=== PATIENT | male | born 1950 | race Caucasian/White ===

== ENCOUNTER → 2020-05-11 | Outpatient (CLI) | payer MEDICARE, OTHER | END | disposition home or self-care (01) | LOC: CPPFTMAIN 08:44 | PROVIDERS: ATTEND Internal Medicine Critical Care Medicine | DX: J44.9 Chronic obstructive pulmonary disease, unspecified (principal) | CPT/HCPCS: 94060; 94726; 94729 ==

== ENCOUNTER → 2020-07-09 | Outpatient (CLI) | payer MEDICARE, OTHER ==
--- NOTE | 2020-07-09 18:04 | PE ---
EXAMINATION TYPE: PET CT fusion skull to thigh DATE OF EXAM: 07/09/2020 COMPARISON: None Prior PET/CT: None HISTORY: Lung nodule. History of liver cancer status post liver transplant. TECHNIQUE: Following the intravenous administration of 11.13 mCi of F-18 FDG, whole body images are performed from the skull base to the midthigh. Images are reviewed on the computer in the coronal, a xial, and sagittal planes. Reconstructed rotating images are created on independent workstation and reviewed on the computer. A localization and attenuation correction CT is performed in conjunction with the PET scan. SCAN: Initial Scan Blood glucose: 160 mg/dL Average Mediastinum SUV: 1.18 Average Liver SUV: 2.08 FINDINGS: NECK: No hypermetabolic activity. THORAX: Left lower lobe pulmonary nodule measures 1.0 cm (3:118) with no metabolic activity. ABDOMEN/PELVIS: No abnormal hypermetabolic activity. OSSEOUS STRUCTURES: No hypermetabolic activity. LOCALIZATION CT: No cervical, thoracic, or abdominopelvic lymphadenopathy. Calcified coronary artery disease. There is diffuse circumferential thickening of the mid and distal esophagus. Status post cho lecystectomy. Nonobstructing left renal 6 mm calculus. Splenomegaly measures up to 18.8 cm. Colonic d iverticulosis, with no acute diverticulitis. Degenerative changes of the spine. COMPARISON: None available IMPRESSION: 1. Left lower lobe 1.0 cm pulmonary nodule demonstrates no metabolic activity. Recommend CT chest. Si x-month follow-up for stability. 2. Circumferential thickening of the mid to distal esophagus. Findings may represent esophagitis vers us neoplasm. Recommend direct visualization. 3. Splenomegaly. 4. Nonobstructing left renal calculus.
== END | disposition home or self-care (01) ==
LOC: RADPETMAIN 10:19
PROVIDERS: ATTEND Internal Medicine Critical Care Medicine
DX: R91.1 Solitary pulmonary nodule (principal); K22.8 Other specified diseases of esophagus; R16.1 Splenomegaly, not elsewhere classified; N20.0 Calculus of kidney; E11.9 Type 2 diabetes mellitus without complications
CPT/HCPCS: 78815; A9552

== ENCOUNTER → 2021-11-22 | Outpatient (CLI) | payer MEDICARE, OTHER ==
[2021-11-22 18:52] LABS: African American GFR (CKD) >90 (>60 ml/min/1.73 sqM); Blood Urea Nitrogen 28 mg/dL (9-20); Non-African American GFR(CKD) >90 (>60 ml/min/1.73 sqM)
--- NOTE | 2021-11-23 08:00 | CT ---
EXAMINATION TYPE: CT chest w con DATE OF EXAM: 11/22/2021 COMPARISON: PET scan dated 07/09/2020 HISTORY: h/o lung nodule CT DLP: 518.2 mGycm Automated exposure control for dose reduction was used. TECHNIQUE: CT scan of the chest is performed with IV Contrast, patient injected with 72 mL of Isovue 300. FINDINGS: LUNGS: Left lower lobe nodule measuring 11 mm compared to 10 mm previously (July 2020 CT scan). T he surrounding micronodularity measuring up to 4 mm is stable. Newly seen minimal groundglass opaciti es and subtle areas of infiltration at the posterolateral aspect of the right lower lobe. Scattered l inear basal pulmonary atelectasis. Mild COPD changes. Patent trachea and main bronchi. No pleural eff usion. MEDIASTINUM: No pathologically enlarged lymph nodes in the chest. Cardiomegaly. Coronary and arterial atherosclerotic calcifications. The pulmonary trunk measures 3.1 cm suggestive of pulmonary hyperten boris. Persistent diffuse wall thickening of the inferior half of the esophagus, underlying chronic es ophagitis or subtle esophageal lesion can't be excluded, this was also appreciated previously. No per icardial effusion. OTHER: Previous cholecystectomy. Bulky spleen, possibly wandering. 6 mm nonobstructing left renal ca lculus. Right upper pole renal cyst without gross suspicious feature. Mild bilateral gynecomastia magda nges. Degenerative changes of the thoracic spine. IMPRESSION: 1. Minimal interval change in the size of the known left lower lobe nodule since July 2020 CT sca n which is reassuring for a benign lesion. Considering the minimal interval increase in size, another precautionary follow up CT scan in one year can be considered. 2. The described changes in the right lower lobe could be related to an inflammatory/infectious proce ss, possibly chronic atypical infection, for clinical correlation and further workup. Follow-up to re solution can be considered. Other incidental findings as described above.
== END | disposition home or self-care (01) ==
LOC: RADCTMAIN 18:13
PROVIDERS: ATTEND Internal Medicine Critical Care Medicine
DX: R91.1 Solitary pulmonary nodule (principal)
CPT/HCPCS: 82565; 84520; 71260; 36415; Q9967

== ENCOUNTER → 2022-12-20 | Outpatient (CLI) | payer MEDICARE, OTHER ==
[2022-12-20 11:34] LABS: African American GFR (CKD) >90 (>60 ml/min/1.73 sqM); Blood Urea Nitrogen 27 mg/dL (9-20); Non-African American GFR(CKD) >90 (>60 ml/min/1.73 sqM)
--- NOTE | 2022-12-20 12:36 | CT ---
EXAMINATION TYPE: CT chest w con CT DLP: 610.9 mGycm, Automated exposure control for dose reduction was used. DATE OF EXAM: 12/20/2022 12:03 PM COMPARISON: PET/CT 07/09/2020. CT 11/22/2021 CLINICAL INDICATION:Male, 72 years old with history of R91.1 SOLITARY PULMONARY NODULE, nodules, COPD TECHNIQUE: Multiple axial images were obtained through the chest. Sagittal and coronal reformats were created for review. Contrast used:100 mL of Isovue 300 with IV Contrast Oral contrast used: e none. FINDINGS: LUNGS/ PLEURA: Left lower lobe pulmonary nodule measuring 11 x 8 mm, previously 9 x 8 mm in on 020. No additional suspicious pulmonary nodules visualized. Mild centrilobular emphysema changes. No focal consolidation, pneumothorax or pleural effusion. AIRWAY: Patent and unremarkable. HEART: The heart is mildly enlarged for size. There is coronary artery calcifications. MEDIASTINUM: No gross evidence of adenopathy. Circumferential esophageal wall thickening with layerin g debris. Wall thickening up to 4 mm distally. Small hiatal hernia. VASCULATURE: No aortic aneurysm. Visualized pulmonary arterial vasculature is without filling defect suggest pulmonary embolus MUSCULOSKELETAL: No acute osseous abnormalities SOFT TISSUES/LYMPH NODES: Unremarkable. LOWER NECK: No significant findings. UPPER ABDOMEN: The gallbladder surgically absent. IMPRESSION: 1. Mildly increased in size left lower lobe pulmonary nodule now measuring 11 x 8 mm, previously 9 x 8 mm compared to 11 07/09/2020 no additional new suspicious pulmonary nodules or lymphadenopathy visu alized. Continued attention on follow-up CT. 2. Circumferential wall thickening with layering debris within the esophagus findings similar to 07/09/2020 findings likely representing esophagitis possibly from esophageal dysmotility and reflux. Cons ider direct visualization
== END | disposition home or self-care (01) ==
LOC: RADCTMAIN 10:49
PROVIDERS: ATTEND Internal Medicine Critical Care Medicine
DX: K63.89 Other specified diseases of intestine (principal); R91.8 Other nonspecific abnormal finding of lung field
CPT/HCPCS: 82565; 84520; 71260; 36415; Q9967